=== PATIENT | female | born 1980 | race Caucasian/White ===

== ENCOUNTER 2019-09-04 14:27 | Emergency (ER) | payer OTHER ==
[2019-09-04 15:14] VITALS: BP 135/75
--- NOTE | 2019-09-04 15:52 | UC ---
Throat Pain/Nasal Jaspreet HPI - HPI Summary HPI Summary: 39-year-old woman comes in with a chief complaint of sinusitis symptoms for one week. She's got creamy colored rhinorrhea. She has left-sided sinus pressure. She does use an antihistamine nasal spray which she feels like it helps some. Also she tried some steam and also helped briefly but overall she's getting worse. Minimal sore throats with the postnasal drip. No cough or chest congestion. - History of Current Complaint Chief Complaint: UCRespiratory Stated Complaint: SINUS COMPLAINT Time Seen by Provider: 09/04/19 15:40 Hx Last Menstrual Period: hx uterine ablation Pain Intensity: 2 - Allergies/Home Medications Allergies/Adverse Reactions: Allergies Allergy/AdvReac Type Severity Reaction Status Date / Time No Known Allergies Allergy Verified 09/04/19 15:08 Home Medications: Home Medications Azelastine 0.1% Nasal (NF) [Astepro 0.1% Nasal (NF)] 1 spray BID 09/04/19 [ History Confirmed 09/04/19] Escitalopram * [Lexapro *] 20 mg BID 09/04/19 [History Confirmed 09/04/19] busPIRone TAB* [Buspar TAB *] 15 mg PO TID 09/04/19 [History Confirmed 09/04/19] PMH/Surg Hx/FS Hx/Imm Hx Previously Healthy: Yes - Surgical History Surgical History: Yes Surgery Procedure, Year, and Place: Gastric bypass March 2016. Uterine ablation 2016 - Family History Known Family History: Positive: Non-Contributory - Social History Alcohol Use: None Substance Use Type: None Smoking Status (MU): Never Smoked Tobacco Review of Systems All Other Systems Reviewed And Are Negative: Yes Constitutional: Positive: Negative Skin: Positive: Negative Eyes: Positive: Negative ENT: Positive: Sore Throat, Nasal Discharge, Sinus Congestion, Sinus Pain/ Tenderness Respiratory: Positive: Negative Cardiovascular: Positive: Negative Gastrointestinal: Positive: Negative Motor: Positive: Negative Neurovascular: Positive: Negative Musculoskeletal: Positive: Negative Neurological: Positive: Negative Psychological: Positive: Negative Is Patient Immunocompromised?: No Physical Exam Triage Information Reviewed: Yes Appearance: No Pain Distress, Well-Nourished, Ill-Appearing - MILD Vital Signs: Initial Vital Signs Temp 98.2 F 09/04/19 15:10 Pulse 54 09/04/19 15:10 Resp 16 09/04/19 15:10 BP 135/75 09/04/19 15:10 Pulse Ox 100 09/04/19 15:10 Vital Signs Reviewed: Yes Eye Exam: Normal Eyes: Positive: Conjunctiva Clear ENT: Positive: Pharyngeal erythema, Nasal congestion, Nasal drainage, TMs normal , Sinus tenderness Neck: Positive: Supple Respiratory: Positive: Lungs clear, Normal breath sounds, No respiratory distress Cardiovascular: Positive: RRR Musculoskeletal: Positive: Strength Intact, ROM Intact Neurological: Positive: Alert, Muscle Tone Normal Psychological: Positive: Age Appropriate Behavior Skin Exam: Normal Throat Pain/Nasal Course/Dx - Course Course Of Treatment: DISCUSSED VIRAL VERSES BACTERIAL INFECTIONS AND THE ROLE OF ANTIBIOTICS. THE PATIENT PREFERS TO BE ON ANTIBIOTICS AT THIS TIME. - Differential Dx/Diagnosis Provider Diagnosis: Sinusitis Discharge ED - Sign-Out/Discharge Documenting (check all that apply): Patient Departure All imaging exams completed and their final reports reviewed: No Studies - Discharge Plan Condition: Stable Disposition: HOME Prescriptions: Amoxicillin PO (*) [Amoxicillin 875 MG (*)] 875 mg PO BID #20 tab Patient Education Materials: Sinusitis (ED) Referrals: [facility] [Outside] Additional Instructions: FOLLOW UP WITH YOUR DOCTOR IF NOT COMPLETELY IMPROVED. GET REEVALUATED SOONER IF NOT IMPROVING OR WORSE OR ANY QUESTIONS OR CONCERNS. - Billing Disposition and Condition Condition: STABLE Disposition: Home
== END 2019-09-04 16:01 | disposition home or self-care (01) ==
LOC: UCCORT 14:27
DX: J32.9 Chronic sinusitis, unspecified (principal)
CPT/HCPCS: 99202; G0463